=== PATIENT | male | born 1980 | race Two or more races ===

== ENCOUNTER 2023-08-07 11:28 | Emergency (ER) | payer OTHER ==
[~2023-08-07] VITALS: Ht 170.2 cm; Wt 97.7 kg
[2023-08-07] MEDS ORDERED: IOHEXOL 300 MG/ML 100ML BOTTLE IJ ONE (13:38)
[2023-08-07] MEDS ORDERED: SODIUM CHLORIDE 0.9% 1,000 ML IV ONE (14:45)
[2023-08-07 17:19] VITALS: BP 121/78; PULSE 94; RESP 16; TEMP 98.1; O2SAT 95
== END 2023-08-07 17:21 | disposition home or self-care (01) ==
LOC: ER 11:28 → EDBD 11:28 → ER 17:21
DX: S16.1XXA Strain of muscle, fascia and tendon at neck level, initial encounter (principal); S09.90XA Unspecified injury of head, initial encounter; F10.10 Alcohol abuse, uncomplicated; I10 Essential (primary) hypertension; F17.210 Nicotine dependence, cigarettes, uncomplicated; E78.5 Hyperlipidemia, unspecified; V89.2XXA Person injured in unspecified motor-vehicle accident, traffic, initial encounter; Y93.89 Activity, other specified; Y92.89 Other specified places as the place of occurrence of the external cause; Y99.8 Other external cause status; Y90.8 Blood alcohol level of 240 mg/100 ml or more
CPT/HCPCS: 36415; 70450; 71260; 72125; 74177; 80320; 99285; Q9967